=== PATIENT | male | born 1970 | race Two or more races ===

== ENCOUNTER 2020-08-07 10:25 | Outpatient (REF) | payer MEDICAID, SELFPAY ==
[2020-08-07 12:13] LABS: SARS COV2 PCR INHOUSE POSITIVE (Negative)
== END 2020-08-07 10:26 | disposition home or self-care (01) ==
LOC: HO.LAB 10:25
PROVIDERS: Visit Provider Internal Medicine
DX: Z20.822 Contact with and (suspected) exposure to COVID-19 (principal)
CPT/HCPCS: C9803; U0003

== ENCOUNTER 2020-10-31 10:19 | Outpatient (REF) | payer MEDICAID, SELFPAY ==
--- NOTE | ~2020-10-31 | XR_ITS ---
EXAMINATION: XR CERVICAL SPINE CLINICAL INFORMATION: Spondylosis without myelopathy or radiculopathy COMPARISON: None TECHNIQUE: 6 views of the cervical spine, inclusive of flexion and extension views, were obtained. FINDINGS: There is normal cervical lordosis. There is loss of C4-C5 and C6-C7 disc height with mild ventral spondylosis. Rest of the disc heights, vertebral heights and alignment is normal. There is moderate bilateral C4-C5 neural foraminal narrowing from uncovertebral hypertrophic changes. XR/XR cervical spine min 6V IMPRESSION: Degenerative disc changes C4-C5 and C6-C7 disc levels with mild ventral spondylosis. No visible acute fracture or dislocation.
== END 2020-10-31 10:20 | disposition home or self-care (01) ==
LOC: HO.XRAY 10:19
PROVIDERS: Visit Provider Physical Medicine & Rehabilitation
DX: M47.812 Spondylosis without myelopathy or radiculopathy, cervical region (principal)
CPT/HCPCS: 72052

== ENCOUNTER 2021-07-01 11:07 | Outpatient (REF) | payer OTHER, SELFPAY ==
[2021-07-01 11:29] LABS: COVID-19 Test Positive (Negative); IDNOW Serial# 08D9AD1C
== END 2021-07-01 11:08 | disposition home or self-care (01) ==
LOC: HO.LAB 11:07
PROVIDERS: PCP Internal Medicine; Visit Provider Internal Medicine
DX: Z20.822 Contact with and (suspected) exposure to COVID-19 (principal)
CPT/HCPCS: 87635; C9803

== ENCOUNTER 2021-07-07 13:49 | Outpatient (REF) | payer OTHER, SELFPAY ==
[2021-07-07 16:15] LABS: COVID-19 Test Negative (Negative); IDNOW Serial# 16C4AD1C
== END 2021-07-07 13:50 | disposition home or self-care (01) ==
LOC: HO.LAB 13:49
PROVIDERS: Visit Provider Internal Medicine
DX: Z20.822 Contact with and (suspected) exposure to COVID-19 (principal)
CPT/HCPCS: 87635; C9803

== ENCOUNTER 2021-07-14 14:57 | Outpatient (REF) | payer OTHER, SELFPAY ==
[2021-07-14 15:27] LABS: COVID-19 Test Negative (Negative); IDNOW Serial# 16C4AD1C
== END 2021-07-14 14:58 | disposition home or self-care (01) ==
LOC: HO.LAB 14:57
PROVIDERS: Visit Provider Internal Medicine
DX: Z20.822 Contact with and (suspected) exposure to COVID-19 (principal)
CPT/HCPCS: 87635; C9803

== ENCOUNTER 2022-02-25 09:59 | Outpatient (REF) | payer OTHER, SELFPAY ==
--- NOTE | ~2022-02-25 | XR_ITS ---
EXAMINATION: BILATERAL KNEE X-RAY CLINICAL INFORMATION: Pain COMPARISON: Previous left knee x-ray January 2011 TECHNIQUE: 3 views of each knee FINDINGS: Right: Bone alignment is normal. No fracture or dislocation is seen. Joint spaces are normal. There is no joint effusion. Left: Bone alignment is normal. No fracture or dislocation. There is mild arthritis at the medial femoral tibial and patellofemoral joints. There is no joint effusion. XR/XR knee LT 3V IMPRESSION: Right knee: Unremarkable exam. Left knee: Mild arthritis.
--- NOTE | ~2022-02-25 | XR_ITS ---
EXAMINATION: BILATERAL KNEE X-RAY CLINICAL INFORMATION: Pain COMPARISON: Previous left knee x-ray January 2011 TECHNIQUE: 3 views of each knee FINDINGS: Right: Bone alignment is normal. No fracture or dislocation is seen. Joint spaces are normal. There is no joint effusion. Left: Bone alignment is normal. No fracture or dislocation. There is mild arthritis at the medial femoral tibial and patellofemoral joints. There is no joint effusion. XR/XR knee RT 3V IMPRESSION: Right knee: Unremarkable exam. Left knee: Mild arthritis.
[2022-02-25 10:25] LABS: MANUAL DIFF FLAG NO
[2022-02-25 11:58] LABS: Basophils Absolute Auto 0.1 X10*3/uL (0.0-0.2); Basophils Percent Auto 0.8 % (0-2); Eosinophils Absolute Auto 0.2 X10*3/uL (0.0-0.4); Eosinophils Percent Auto 2.9 % (0-4); Hematocrit 42.9 % (42.0-52.0); Hemoglobin 14.6 g/dl (14.0-18.0); Imm Gran Abs Auto 0.04 X10*3/uL (0.00-0.03); Imm Gran Pct Auto 0.6 % (0.0-0.4); Lymphocytes Absolute Auto 2.5 X10*3/uL (1.2-4.9); Lymphocytes Percent Auto 38.3 % (20-40); Mean Corpuscular Hemoglobin 29.7 pg (27.0-33.0); Mean Corpuscular Volume 87.4 fL (80.0-98.0); Mean Platelet Volume 9.4 fL (9.4-12.4); Monocytes Absolute Auto 0.7 X10*3/uL (0.1-1.2); Monocytes Percent Auto 11.5 % (2-11); Neutrophils Percent Auto 45.9 % (45-73); Platelet Count 239 X10*3/uL (160-400); Red Blood Count 4.91 X10*6/uL (4.60-5.80); Red Cell Distribution Width 13.2 % (11.0-16.0); White Blood Count 6.5 X10*3/uL (4.8-10.8)
[2022-02-25 12:31] LABS: Alanine Aminotransferase 33 U/L (0-40); Albumin Level 4.8 g/dL (3.5-5.0); Alkaline Phosphatase 45 U/L (39-117); Anion Gap 15 (12-20); Aspartate Amino Transferase 30 U/L (5-37); Bilirubin Total 0.6 mg/dL (0.0-1.0); Blood Urea Nitrogen 14 mg/dL (9-16); Calcium 10.3 mg/dL (8.4-10.2); Carbon Dioxide 27 mmol/L (22-29); Chloride 102 mmol/L (96-108); Cholesterol 166 mg/dL; Estimated Glomerular Filt Rate > 60; Glucose Fasting 115 mg/dL (60-99); HDL Cholesterol 50 mg/dL; Iron 82 mcg/dL (45-160); LDL Cholesterol Calculated 103 mg/dl; Percent Iron Saturation 25 % (15-50); Potassium 4.7 mmol/L (3.3-5.1); Sodium 139 mmol/L (135-145); Total Iron Binding Capacity 327 mcg/dL (228-428); Total Protein 7.8 g/dL (6.5-8.0); Triglycerides 65 mg/dL; Unsaturated Iron Binding 245 ug/dL
== END 2022-02-25 10:00 | disposition home or self-care (01) ==
LOC: HO.XRAY 09:59
PROVIDERS: PCP Internal Medicine; Visit Provider Internal Medicine
DX: I10 Essential (primary) hypertension (principal); D64.9 Anemia, unspecified; K92.1 Melena
CPT/HCPCS: 36415; 73562; 80053; 80061; 83540; 85025

== ENCOUNTER 2022-03-30 | Outpatient (REF) | payer OTHER, SELFPAY ==
--- NOTE | ~2022-03-30 | XR_ITS ---
EXAMINATION: XR KNEE AP STANDING CLINICAL INFORMATION: Knee pain. COMPARISON: None TECHNIQUE: AP bilateral standing view of the knees was obtained. FINDINGS: There is mild reduction in the medial compartment joint space both knees. The lateral compartment joint space is preserved. No loose bodies, fracture or dislocation seen. The soft tissues are normal. XR/XR knee standing BI IMPRESSION: Mild degenerative changes of medial compartment both knees. No fracture or loose body seen.
== END 2022-03-30 00:01 ==
LOC: HO.HOSX
PROVIDERS: Visit Provider Physician Assistant
DX: M25.561 Pain in right knee (principal); M25.562 Pain in left knee; M54.16 Radiculopathy, lumbar region
CPT/HCPCS: 73565; 99202

== ENCOUNTER → 2022-06-17 14:46 | Outpatient (BNVA) | payer OTHER, SELFPAY | PROVIDERS: PCP Internal Medicine; Visit Provider Nurse Practitioner | DX: Z01.818 Encounter for other preprocedural examination (principal); K59.01 Slow transit constipation; K21.9 Gastro-esophageal reflux disease without esophagitis | CPT/HCPCS: 99202 ==

== ENCOUNTER → 2022-10-11 14:27 | Outpatient (BNVA) | payer OTHER, SELFPAY | PROVIDERS: PCP Internal Medicine; Visit Provider Orthopaedic Surgery | DX: M23.92 Unspecified internal derangement of left knee (principal) | CPT/HCPCS: 99212 ==

== ENCOUNTER 2023-02-04 10:34 | Outpatient (REF) | payer OTHER, SELFPAY ==
--- NOTE | ~2023-02-04 | MR_ITS ---
EXAMINATION: MR KNEE WITHOUT CONTRAST, LEFT CLINICAL INFORMATION: Left knee pain, internal derangement. COMPARISON: Radiograph dated 02/25/2022. TECHNIQUE: MRI of the knee without contrast was performed using routine sequences on a high-field scanner. FINDINGS: MENISCI: MEDIAL MENISCUS: Complex tear of the meniscal body with a dominant radial component. A horizontal component extends into the posterior horn along the inner margin. Meniscal body is partially extruded. LATERAL MENISCUS: Intact. LIGAMENTS: CRUCIATE: Anterior cruciate ligament is intact. The posterior cruciate ligament is diminutive with a hypertrophied posterior meniscofemoral ligament, possibly the result of an old sprain or partial tear. COLLATERAL: Edema signal around the medial collateral ligament is likely reactive to the underlying meniscal abnormality. Collateral ligaments are intact. EXTENSOR MECHANISM: Intact ARTICULAR CARTILAGE/BONE: PATELLOFEMORAL COMPARTMENT: Small marginal osteophytes. Minimal chondral fissuring in the trochlea. MEDIAL COMPARTMENT: Moderate nonuniform chondral thinning is present in the medial tibial plateau anteriorly with a region of full thickness cartilage loss, cortical irregularity, subchondral edema, and subchondral cystic change. Articular cartilage loss of the medial femoral condyle is more pronounced at the posterior weightbearing surface. Small marginal osteophytes. No fractures. LATERAL COMPARTMENT: Tiny marginal osteophytes. Articular cartilage appears relatively well preserved. JOINT FLUID AND BURSAE: Moderate-sized joint effusion. Trace Painter's cyst. Mild pes anserine bursitis. Fluid is present in the popliteus tendon sheath. MR/MR knee LT wo con IMPRESSION: 1. Complex tear of the medial meniscus with a dominant radial component at the meniscal body and partial extrusion of the meniscal body. 2. Moderate medial compartment osteoarthritis. 3. Small caliber PCL, potentially the result of an old partial tear. 4. Moderate-sized joint effusion and trace Painter's cyst. 5. Mild pes anserine bursitis.
== END 2023-02-04 10:35 | disposition home or self-care (01) ==
LOC: HO.MRI 10:34
PROVIDERS: PCP Internal Medicine; Visit Provider Orthopaedic Surgery
DX: M23.92 Unspecified internal derangement of left knee (principal)
CPT/HCPCS: 73721

== ENCOUNTER 2023-02-10 12:28 | Outpatient (AMB) | payer OTHER, SELFPAY ==
--- NOTE | 2023-02-10 12:36 | MHC.OFFVIS ---
Intake Intake Visit Reasons: OV - Left Knee MRI Review Intake Note: Magnus is a 52 year old male who presents today for an MRI review of the left knee. Last injection was done in 2021. Allergies No Known Allergies Allergy (Mild, Verified 02/10/23 12:43) N/A Medication List - Last Reconciled 02/10/23 by Amanda Pink RN alprazolam mg PO fluoxetine 40 mg PO QAM 90 days gabapentin 600 mg PO TID ibuprofen 600 mg PO DAILY losartan 25 mg PO DAILY 90 days pantoprazole 40 mg PO DAILY 90 days peg 3350-electrolytes 236-22.74-6.74 -5.86 gram (Golytely) 240 mL PO Q10M 1 day quetiapine 300 mg PO BEDTIME sennosides (senna) 8.6 mg PO BEDTIME PRN 90 days tadalafil 20 mg PO DAILY HPI OV - Left Knee MRI Review HPI Details Magnus is a 52 year old Diabetic man who presents for an MRI review of his left knee pain. [place] patient He continues to complain of pain with daily activity which is affecting his ability to sleep at night. He says he is seen in the ED one a month due to his pain. He describes his pain as sharp and in the medial aspect of his knees. He takes Gabapentin and Ibuprofen with some relief. He says he received a steroid injection in 04/2022, without relief, and his pain has not improved with activity modification. He feels a painful catching, clicking, and popping sensation in his knees when extending out of flexion, and as a result he has been walking with a stiff-legged gait. He has a hx of multiple surgeries in the past and is not interested in surgery for his knee at this time. [facility] Medical History Bloody stools Constipation by delayed colonic transit Essential hypertension GERD (gastroesophageal reflux disease) Insomnia Lumbar degenerative disc disease Mild recurrent major depression Obesity (BMI 30-39.9) Surgical History History of hernia surgery History of lumbar fusion Family History Mother Heart attack Father No problems noted. Social History (Reviewed 10/11/22 @ 15:02 by AROLDO Wang Housing: Apartment Alcohol intake: former Patient Tobacco Use Status: Never used Tobacco e-Cigarette/Vaping Use: Never Used Second Hand Smoke Exposure: No service: No Current occupational status: disabled Cognitive needs: Yes (cane) Hearing needs: No Vision needs: Yes (glasses) Review of Systems Const All systems reviewed & are unremarkable except as noted in HPI and below Physical Exam Const General: no acute distress, alert and awake Orientation/consciousness: patient oriented x3 HEENT Head: Yes normocephalic and Yes atraumatic Eyes EOM: EOMs intact bilaterally Resp Effort & Inspection: normal respiratory effort and able to speak in complete sentences Cardio Jugular venous distension: no JVD Skin General skin exam: turgor normal Rashes: no rashes Neuro General: patient oriented x3 Extrem Other: Left Knee: + Sharp medial Adriane's 1+ varus instability Psych Appearance: grossly normal Affect: normal affect Attitude: cooperative Office Procedures Joint Injection/Drain Joint Injection/Drain Details: Injected 1 mL of Decadron and 3 mL 1% lidocaine and 3 mL of 0.25% Marcaine. Site was prepped using aseptic technique. Patient tolerated the procedure well. Primary Site: left knee Approach Used: anterolateral Coding 59866 - Large joint Procedure code (CPT) selection complete Results Reviewed Results Reviewed: 02/10/23 13:06 BUPivacaine MPF 0.25 % [Sensorcaine-MPF 0.25% 10 ML] 10 ml .ROUTE .STK-MED ONE Lidocaine HCl 2 % MPF [Xylocaine 2 % MPF] 5 ml .ROUTE .STK-MED ONE dexAMETHasone sod phosphate [Decadron] 4 mg .ROUTE .STK-MED ONE I personally reviewed relevant radiographs & MR images. Mild degenerative changes of medial compartment both knees.? 1. Complex tear of the medial meniscus with a dominant radial component at the meniscal body and partial extrusion of the meniscal body. 2. Moderate medial compartment osteoarthritis. 3. Small caliber PCL, potentially the result of an old partial tear. 4. Moderate-sized joint effusion and trace Painter's cyst. 5. Mild pes anserine bursitis. Assessment & Plan Assessment & Plan (1) Complex tear of medial meniscus of left knee: Code(s): S83.232A - Complex tear of medial meniscus, current injury, left knee, initial encounter Plan: This is a 52 year old man with a left MMT in the setting of OA. He has pain with daily activity, and feels limited in his ADLs. He found no relief from a previous steroid injection at an outside clinic, and limited relief from NSAIDs & Gabapentin. I discussed his diagnosis and treatment options, he is not interested in surgery at this time. I think the most effective treatment would be a UKA but he is not ready for that. I injected his left knee today, which he tolerated well, and ordered an unloading brace for him to wear with activity. I recommend he remain active as tolerated. He can follow up prn. (2) Right knee pain: Code(s): M25.561 - Pain in right knee Plan: Injected, continue activity as tolerated (3) History of diabetes mellitus: Code(s): Z86.39 - Personal history of other endocrine, nutritional and metabolic disease Plan: Controlled by diet & exercise, no medications. I discussed the hyperglycemic effects of steroid injections. Plan Scribed for Misael Long MD by Pravin Hollis, ophthalmic medical assistant, on 02/10/23 at 12:50 PM, EST. Coding Level of Care Code Est Pt Level 4 (99087) Diagnoses Complex tear of medial meniscus of left knee S83.232A Right knee pain M25.561 History of diabetes mellitus Z86.39 CPT Codes Coding - 70137 Large joint: 03482 - Large joint ([id number])
== END 2023-02-10 14:10 | disposition home or self-care (01) ==
PROVIDERS: PCP Internal Medicine; Visit Provider Orthopaedic Surgery
DX: S83.232A Complex tear of medial meniscus, current injury, left knee, initial encounter (principal); M25.561 Pain in right knee; Z86.39 Personal history of other endocrine, nutritional and metabolic disease
CPT/HCPCS: 20610; 99214

== ENCOUNTER → 2023-02-10 12:28 | Outpatient (BNVA) | payer OTHER, SELFPAY | PROVIDERS: PCP Internal Medicine; Visit Provider Orthopaedic Surgery | DX: S83.232D Complex tear of medial meniscus, current injury, left knee, subsequent encounter (principal); M25.561 Pain in right knee; Z86.39 Personal history of other endocrine, nutritional and metabolic disease | CPT/HCPCS: 20610; 99212; J1100 ==

== ENCOUNTER 2023-04-13 11:56 | Outpatient (AMB) | payer OTHER, SELFPAY ==
[2023-04-13 12:02] VITALS: BP 132/90; BMI 29.8
--- NOTE | 2023-04-13 12:02 | A.OFFPC_ITS ---
Vital Signs 04/13/23 12:02 Height 6 ft 1 in Weight 226 lb BMI 29.8 BP 132/90 H Blood Pressure Location Lt brachial Position Sitting Intake Visit Reasons: PE Intake Note: Patient here for a physical exam Continuous Vulcanizing Machine Operator Required: No Accompanied by: Self / Same As Patient Allergies No Known Allergies Allergy (Mild, Verified 04/13/23 12:16) N/A Medication List - Last Reconciled 04/13/23 by Marian Beal MD losartan 25 mg PO DAILY 90 days Tobacco use date assessed: 04/13/23 Dental Screening Dental Screen Date: 04/13/23 Did you have a dental visit in the last 12 months?: Yes Did you have a dental problem in the last 6 months where you did not have access to dental care?: No Was dental information given to patient?: Patient has dentist HPI HPI Comments History of Present Illness Details This is a 53-year-old male with mild recurrent major depression that comes for his physical exam. Depression stable with counseling. Denies any chest pain or shortness of breath. Was referred to open access last year and will be referred again because he said he was giving the medications but had no appointment for colonoscopy. [facility] Medical History Mild recurrent major depression Bloody stools Constipation by delayed colonic transit GERD (gastroesophageal reflux disease) Insomnia Lumbar degenerative disc disease Obesity (BMI 30-39.9) Essential hypertension Surgical History History of hernia surgery History of lumbar fusion Family History Mother Heart attack Father No problems noted. Social History Housing: Apartment Alcohol intake: former Patient Tobacco Use Status: Never used Tobacco e-Cigarette/Vaping Use: Never Used Second Hand Smoke Exposure: No service: No Current occupational status: disabled Cognitive needs: Yes (cane) Hearing needs: No Vision needs: Yes (glasses) Questionnaire PHQ-9 Over the last 2 weeks, how often have you been bothered by any of the following problems? 1. Little interest or pleasure in doing things: more than half the days 2. Feeling down, depressed, or hopeless: several days 3. Trouble falling or staying asleep, or sleeping too much: several days 4. Feeling tired or having little energy: several days 5. Poor appetite or overeating: not at all 6. Feeling bad about yourself - or that you are a failure or have let yourself or your family down: not at all 7. Trouble concentrating on things, such as reading the newspaper or watching television: several days 8. Moving or speaking so slowly that other people could have noticed. Or the opposite - being so fidgety or restless that you have been moving around a lot more than usual: not at all 9. Thoughts that you would be better off or of hurting yourself in some way: not at all Total score: 6 Depression Screening Interpretation: Positive Depression Screening Follow-up: Existing condition and Community Mental Health Worker F/U Depression Screening Done: Yes 01215 - PHQ-9 Billing: Yes Source: Developed by Drs. Teo Roy, Shireen Smith, Phu Zhao and colleagues, with an educational eleazar from [employer]. Thrive Questionnaire Date Thrive assessed: 04/13/23 I am a: Patient What is your living situation today?: I have a steady place to live Within the past 12 months, did the food you bought not last and you didn't have the money to get more?: Never true Within the past 12 months, did you worry whether your food would run out before you got money to buy more?: Never true Do you have trouble paying for medicines?: No Do you have trouble getting transportation to medical appointments?: No Do you have trouble paying your heating and electricity bill?: No Do you have trouble taking care of your child, family member or friend?: No Do you have trouble with day-to-day activities such as bathing, preparing meals, shopping, managing finances, etc.?: No Are you currently unemployed and looking for a job?: No Are you interested in more education?: No Please select the resources that you would like help with: None Currently or been in a relationship where the following occur: no concerns reported AUDIT C Alcohol Use Questionnaire (AUDIT-C) 1. How often do you have a drink containing alcohol?: Never Total Score: 0 GREGOIRO-7 AMB Questionnaire GREGORIO-7 Date GREGORIO - 7 assessed: 04/13/23 Feeling nervous, anxious, or on edge: 3 = Nearly every day Not being able to stop or control worryin = Several days Worrying too much about different things: 3 = Nearly every day Trouble relaxin = Several days Being so restless that it is hard to sit still: 1 = Several days Becoming easily annoyed or irritable: 2 = More than half the days Feeling afraid as if something awful might happen: 1 = Several days Total GREGORIO-7 score (0-4 normal; 5-9 mild; 10-14 moderate; 15-21 severe): 12 Source: Developed by Drs. Teo Roy, Shireen Smith, Phu Zhao and colleagues, with an educational eleazar from [employer]. GREGORIO-7 Assessment Billing GREGORIO-7 Assessment Tool: GREGORIO-7 Assessment 59093 Review of Systems Const All systems reviewed & are unremarkable except as noted in HPI and below Eyes Reports no additional complaints, Denies change in vision and Denies other visual disturbances Card Denies chest pain at rest, Denies chest pain with activity, Denies edema, Denies irregular heart rhythm, Denies claudication, Denies dyspnea, Denies dyspnea on exertion, Denies orthopnea, Denies paroxysmal nocturnal dyspnea and Denies slow heart rate Resp Denies cough, Denies dyspnea and Denies dyspnea on exertion GI Denies abdominal pain, Denies change in bowel habits, Denies excessive flatus, Denies nausea and Denies vomiting Denies urinary hesitancy, Denies urinary incontinence and Denies urinary urgency Musc Denies abnormal gait, Denies atrophy, Denies deformity and Denies limited range of motion Skin/Breast Denies bleeding lesions, Denies changing lesions and Denies rash Neuro Denies abnormal gait, Denies behavioral changes, Denies confusion and Denies lack of coordination Psych Denies behavioral changes and Denies confusion Physical exam (Primary Care) Vital Signs: Last Vital Signs BP 132/90 H 04/13/23 12:02 BMI result Body Mass Index 29.8 Tobacco/Smoking Status: Tobacco use Status Tobacco use date assessed 04/13/23 04/13/23 12:10 Patient Tobacco Use Status Never used Tobacco 04/13/23 12:10 e-Cigarette/Vaping Use Never Used 12/06/23 12:10 PHQ-9: PHQ-9 Score PHQ-9: Total score 6 04/13/23 12:10 Depression Screening Interpretation: Positive Depression Screening Follow-up: Existing condition and Community Mental Health Worker F/U Thrive Assessment: Date of Thrive Assessment Date Thrive assessed 04/13/23 04/13/23 12:10 Currently or been in a relationship where the following occur: no concerns reported Const General: No confusion Orientation/consciousness: patient oriented x3 and No confusion HENMT Head: Yes normal to inspection, Yes normocephalic and Yes atraumatic Ears: external ears normal Eyes General: appearance normal, both eyes and all related structures Eyelids: Yes eyelids normal Conjunctivae: conjunctivae normal Neck Neck: Yes normal visual inspection and Yes supple Resp Effort & Inspection: normal respiratory effort Auscultation: clear to auscultation bilaterally Cardio Jugular venous distension: no JVD Rate: regular rate Rhythm: regular rhythm Heart sounds: S1 normal heart sound present and S2 normal heart sound present GI Inspection: Yes normal to inspection Palpation (GI): Soft to palpation and nontender Auscultation: normal bowel sounds Skin General skin exam: no rashes or lesions noted Neuro General: patient oriented x3, no focal motor deficits and No confusion Extrem General: Yes full ROM Psych Appearance: grossly normal Office Procedures Flu Questionnaire Does the patient have a severe egg allergy?: No Immunizations flu vacc [id number] 6mos up(PF) 60 mcg(15 mcgx4)/0.5 mL IM syringe Performing Provider: Marian Beal MD [facility] Documented (not given) by: DAYLIN Terry on 04/13/23 12:12 Reason Not Given: Patient Refused Assessment and Plan Assessment & Plan (1) Adult general medical exam: Code(s): Z00.00 - Encounter for general adult medical examination without abnormal findings Plan: Repeat in a year. (2) Mild recurrent major depression: Code(s): F33.0 - Major depressive disorder, recurrent, mild Plan: Continue counseling. Orders: Orders Lipid Panel Today Z00.00 - Encounter for general adult medical examination without abnormal findings Comprehensive [place]. Panel Fast Today Z00.00 - Encounter for general adult medical examination without abnormal findings Influenza [id number] Immunization Today Z23 - Encounter for immunization Referrals Open Access Screening Colonoscopy Referral Z12.11 - Encounter for screening for malignant neoplasm of colon Coding Level of Care Code Est Pt Prev Care 40-64y(36441) Diagnoses Adult general medical exam Z00.00 Mild recurrent major depression F33.0 Additional Codes GREGORIO-7 Assessment Billing - GREGORIO-7 Assessment Tool: GREGORIO-7 Assessment 63756 ([id number]) Time Spent (min) 31
== END 2023-04-13 12:26 | disposition home or self-care (01) ==
PROVIDERS: PCP Internal Medicine; Visit Provider Internal Medicine
DX: Z00.00 Encounter for general adult medical examination without abnormal findings (principal); F33.0 Major depressive disorder, recurrent, mild; K21.9 Gastro-esophageal reflux disease without esophagitis; I10 Essential (primary) hypertension
CPT/HCPCS: 96127; 99396

== ENCOUNTER 2023-04-21 12:37 | Outpatient (REF) | payer OTHER, SELFPAY ==
[2023-04-21 14:29] LABS: Alanine Aminotransferase 17 U/L (0-40); Albumin Level 4.4 g/dL (3.5-5.0); Alkaline Phosphatase 51 U/L (39-117); Anion Gap 11 (12-20); Aspartate Amino Transferase 19 U/L (5-37); Bilirubin Total 0.4 mg/dL (0.0-1.0); Blood Urea Nitrogen 21 mg/dL (9-16); Calcium 9.6 mg/dL (8.4-10.2); Carbon Dioxide 27 mmol/L (22-29); Chloride 106 mmol/L (96-108); Cholesterol 227 mg/dL (<200); Estimated Glomerular Filt Rate > 60; Glucose Fasting 96 mg/dL (60-99); HDL Cholesterol 50 mg/dL (>40); LDL Cholesterol Calculated 165 mg/dL (<100); Potassium 4.3 mmol/L (3.3-5.1); Sodium 140 mmol/L (135-145); Total Protein 7.8 g/dL (6.5-8.0); Triglycerides 61 mg/dL (<150)
== END 2023-04-21 12:38 | disposition home or self-care (01) ==
LOC: HO.LAB 12:37
PROVIDERS: PCP Internal Medicine; Visit Provider Internal Medicine
DX: Z00.00 Encounter for general adult medical examination without abnormal findings (principal)
CPT/HCPCS: 36415; 80053; 80061

== ENCOUNTER 2023-05-19 14:16 | Outpatient (AMB) | payer OTHER, SELFPAY ==
--- NOTE | 2023-05-19 14:49 | A.OFFVIS_ITS ---
Intake Intake Visit Reasons: ov- right knee pain Intake Note: Magnus is a 53 year old male who presents today for a follow up of his right knee pain as he would like an unloading brace as the one he has for his left kne is helpful. Complains of right hip pain and would like an xray Allergies No Known Allergies Allergy (Mild, Verified 04/13/23 12:16) N/A HPI ov- right knee pain HPI Details Magnus is a 53 year old Diabetic man who returns to discuss his right knee pain. He complains of pain with daily activity, and would like to try wearing a brace. He says the left knee brace he was given has been very helpful for his pain and he thinks he would benefit from the same brace on his right knee. He is com plaining of right hip pain at the level of his [facility] Medical History Mild recurrent major depression Bloody stools Constipation by delayed colonic transit GERD (gastroesophageal reflux disease) Insomnia Lumbar degenerative disc disease Obesity (BMI 30-39.9) Essential hypertension Surgical History History of hernia surgery History of lumbar fusion Family History Mother Heart attack Father No problems noted. Social History Housing: Apartment Alcohol intake: former Patient Tobacco Use Status: Never used Tobacco e-Cigarette/Vaping Use: Never Used Second Hand Smoke Exposure: No service: No Current occupational status: disabled Cognitive needs: Yes (cane) Hearing needs: No Vision needs: Yes (glasses) Review of Systems Const All systems reviewed & are unremarkable except as noted in HPI and below Physical Exam Const General: no acute distress, alert and awake Orientation/consciousness: patient oriented x3 HEENT Head: Yes normocephalic and Yes atraumatic Eyes EOM: EOMs intact bilaterally Resp Effort & Inspection: normal respiratory effort and able to speak in complete sentences Cardio Jugular venous distension: no JVD Skin General skin exam: turgor normal Rashes: no rashes Neuro General: patient oriented x3 Extrem Other: ttp medial compartment bilateral knees He has an antalgic gait with minimal knee flexion an the swing phase in gait and pain with resisted hip flexion neg impingement right hip 1+ varus laxity right knee Psych Appearance: grossly normal Affect: normal affect Attitude: cooperative Assessment & Plan Assessment & Plan (1) Complex tear of medial meniscus of left knee: Code(s): S83.232A - Complex tear of medial meniscus, current injury, left knee, initial encounter Plan: IS doing well with his left knee unbloader. (2) Varus deformity, not elsewhere classified, right knee: Code(s): M21.161 - Varus deformity, not elsewhere classified, right knee Plan: It is reasonable to try a medial unloading on the right. Plan Scribed for Misael Long MD by Pravin Hollis, mobile paramedical examiner, on 05/19/23 at 2:55 PM, EST. Coding Level of Care Code Est Pt Level 3 (56345) Diagnoses Complex tear of medial meniscus of left knee S83.232A Varus deformity, not elsewhere classified, right knee M21.161
== END 2023-05-19 15:56 | disposition home or self-care (01) ==
PROVIDERS: PCP Internal Medicine; Visit Provider Orthopaedic Surgery
DX: S83.232A Complex tear of medial meniscus, current injury, left knee, initial encounter (principal); M21.161 Varus deformity, not elsewhere classified, right knee
CPT/HCPCS: 99213

== ENCOUNTER → 2023-05-19 14:16 | Outpatient (BNVA) | payer OTHER, SELFPAY | PROVIDERS: PCP Internal Medicine; Visit Provider Orthopaedic Surgery | DX: S83.232D Complex tear of medial meniscus, current injury, left knee, subsequent encounter (principal); M21.161 Varus deformity, not elsewhere classified, right knee | CPT/HCPCS: 99212; J0665; J1100 ==

== ENCOUNTER 2023-08-02 09:07 | Day surgery (SDC) | payer OTHER, SELFPAY ==
[2023-07-29 14:26] VITALS: BMI 32.2
--- NOTE | 2023-08-01 12:27 | HO.ANESPROP2 ---
Documented by User: Lisa Chu NP 08/01/23 12:28 HPI - Anesthesia Eval Consult details Narrative: 53yo M for Colonoscopy PMFSH Active Problems Active Problems: All Active Problems (Updated 05/22/23 @ 10:02 by Misael Long MD) Varus deformity, not elsewhere classified, right knee (Acute) Complex tear of medial meniscus of left knee (Acute) Internal derangement of left knee (Acute) Pre-op examination (Acute) Lumbar radiculopathy (Acute) Right knee pain (Acute) Left knee pain (Acute) History of diabetes mellitus (Acute) Adult general medical exam (Acute) Screening for colon cancer (Acute) Routine screening for STI (sexually transmitted infection) (Acute) Screening for prostate cancer (Acute) Mild recurrent major depression (Acute) Bloody stools (Acute) Constipation by delayed colonic transit (Acute) GERD (gastroesophageal reflux disease) (Acute) Insomnia (Acute) Lumbar degenerative disc disease (Acute) Obesity (BMI 30-39.9) (Acute) Essential hypertension (Acute) Past Medical History Medical History Mild recurrent major depression Bloody stools Constipation by delayed colonic transit GERD (gastroesophageal reflux disease) Insomnia Lumbar degenerative disc disease Obesity (BMI 30-39.9) Essential hypertension Family History Family History Mother Heart attack Father No problems noted. Surgical History Surgical History History of hernia surgery History of lumbar fusion Social History Social History Housing: Apartment Alcohol intake: former Patient Tobacco Use Status: Never used Tobacco e-Cigarette/Vaping Use: Never Used Second Hand Smoke Exposure: No Use of substances other than those prescribed or required for medical reasons: No Are you DNR?: No Advance Directives: No Advance Directives Information Provided: Yes service: No Current occupational status: disabled Cognitive needs: Yes (cane) Hearing needs: No Vision needs: Yes (glasses) Meds Allergies Allergy/AdvReac Type Severity Reaction Status Date / Time No Known Allergies Allergy Mild N/A Verified 08/02/23 10:41 Home Medications Medication Instructions Recorded Confirmed Last Taken Type aspirin 81 mg capsule 81 mg 03/26/24 Unknown History Exam Height,Weight and Vital Signs: Height 6 ft 1 in Weight 110.677 kg Assessment and Plan Assessment Anesthesia Assessment: Chart Reviewed Documented by User: Sukh Lopez MD 08/02/23 11:20 [facility] Past Medical History Medical History Mild recurrent major depression Bloody stools Constipation by delayed colonic transit GERD (gastroesophageal reflux disease) Insomnia Lumbar degenerative disc disease Obesity (BMI 30-39.9) Essential hypertension Family History Family History Mother Heart attack Father No problems noted. Family history of problems with anesthesia: No Surgical History Surgical History History of hernia surgery History of lumbar fusion History of Problems with Anesthesia: No Social History Social History Housing: Apartment Alcohol intake: former Patient Tobacco Use Status: Never used Tobacco e-Cigarette/Vaping Use: Never Used Second Hand Smoke Exposure: No Use of substances other than those prescribed or required for medical reasons: No Are you DNR?: No Advance Directives: No Advance Directives Information Provided: Yes service: No Current occupational status: disabled Cognitive needs: Yes (cane) Hearing needs: No Vision needs: Yes (glasses) Meds Allergies Allergy/AdvReac Type Severity Reaction Status Date / Time No Known Allergies Allergy Mild N/A Verified 08/02/23 10:41 Home Medications Medication Instructions Recorded Confirmed Last Taken Type aspirin 81 mg capsule 81 mg 08/02/23 Unknown History Exam Airway Mallampati Class: I TM Dist: >3cm Neck ROM: Full Loose/Missing/Broken Teeth: No Heart: ok Lungs: ok Assessment and Plan Assessment Anesthesia Assessment: Anesthesia Plan Discussed Final Anesthetic Review Family History of Problems with Anesthesia: No History of Problems with Anesthesia: No NPO: Yes ASA Class: II Final Preanesthetic Review: No Changes in Pt Med Stat, Meds/Allgs Chart Reviewed, Consent Obtained/Reviewed and Anes Risks/Benef Reviewed Patient Risk: Intermediate Procedure Risk: Low Anesthetic Plan Anesthetic Plan: MAC: and Agree w/ Assess. and Plan Disposition: Standard PACU
--- NOTE | 2023-08-02 10:22 | P.HPSUR_ITS ---
Pre-Procedural Eval Section A - 24 Hr Update-Section A only Date of Service: 08/02/23 Section B - Complete if H&P > 30 days Chief Complaint: Encounter for screening for malignant neoplasm of Relevant Family History (Specify if Yes): No Relevant Social History: None Present Medications: see Short Stay Collaborative assessment Medical History: Significant History (Mild recurrent major depression Bloody s tools Constipation by delayed colonic transit GERD (gastroesophageal reflux disease) Insomnia Lumbar degenerative disc disease Obesity (BMI 30-39.9) Essential hypertension) History of Previous Operations: Relevant previous surgery/procedure and date(s) (History of hernia surgery History of lumbar fusion) Allergies: Allergies Allergy/AdvReac Type Severity Reaction Status Date / Time No Known Allergies Allergy Mild N/A Verified 04/13/23 12:16 Review of Systems Sugical H&P ROS: Negative: Constitution, Cardiovascular, Respiratory, Neurological, Psychiatric, Hem-Onc, Allergic/Immunologic, Gastrointestinal, Genitourinary, Musculoskeletal, Integumentary, Endocrine and Eyes/Ears/Nose/Throat Exam Surgical H&P Exam: Normal: HEENT, Normal: Heart, Normal: Lungs, Normal: Extremities, Normal: Abdomen, Normal: Skin and Normal: Neurological Plan Diagnosis/Plan: Unchanged I have reviewed the history and physical and performed a pertinent physical examination on my patient. No changes have occurred unless specified. Time Spent With Patient Time: Total time managing care of this patient today ____ minutes.
[2023-08-02 10:54] VITALS: BP 157/99; PULSE 80; RESP 18; TEMP 36.9; O2SAT 96
--- NOTE | 2023-08-02 11:14 | P.OP_ITS ---
Operative Note Operative Note Date of Service: 08/02/23 Narrative: Operative Information Procedure Description: Colonoscopy Indication: screening Anesthesia: MAC COLONOSCOPY Instrument: Olympus variable stiffness ADULT scope 190L Colonoscopy Monitoring: Vital signs and clinical assessment, continuous EKG monitoring, Pulse oximetry, Carbon Dioxide monitoring and blood pressure monitoring were done throughout the procedure. Colon withdrawal time was 12 minutes. Procedure: The patient was placed in the left lateral decubitis position and pre-procedure medications were administered. After a digital rectal examination of the ano-rectum, the video colonoscope was inserted into the rectum and advanced through the colon to the cecum/TI. The colonoscope was slowly withdrawn in a retrograde panoramic fashion and the colon mucosa was carefully examined including a retroflexed view of the rectum. Findings and interventions are described below. Procedure Difficulty: easy Findings: Terminal Ileum- patchye rythema, bx taken Cecum:normal, bx taken Ascending Colon: normal Transverse Colon -normal Descending Colon:normal Sigmoid Colon: normal Rectum: Retroflexion with small to medium sized internal hemorrhoids seen, grade I Anorectum - normal Intervention: biopsies, cold forceps Colon preparation: [place] Bowel Preparation Scale Right colon; 2 Transverse colon: 2 Left colon; 2 (0 = Unprepared colon segment with mucosa not seen due to solid stool that cannot be cleared. 1 = Portion of mucosa of the colon segment seen, but other areas of the colon segment not well seen due to staining, residual stool and/or opaque liquid. 2 = Minor amount of residual staining, small fragments of stool and/or opaque liquid, but mucosa of colon segment seen well. 3 = Entire mucosa of colon segment seen well with no residual staining, small fragments of stool or opaque liquid) Impression and Post Procedure Diagnosis: ileitis internal hemorrhoids Plan: High fiber diet leaflet Avoid straining at stool, epsom salts and sitz bath, anusol supps or cream Repeat Colonoscopy in 10 years or earlier if clinically indicated check nsaid hx --if sx pos then Cte to check for crohns Above findings were reviewed with the patient and relevant handouts were provided if indicated.
[2023-08-02 11:17] VITALS: BP 108/62; PULSE 80; RESP 16; TEMP 36.6; O2SAT 96
[2023-08-02 11:32] VITALS: BP 120/73; PULSE 78; RESP 16; TEMP 36.6; O2SAT 97
== END 2023-08-02 12:06 | disposition home or self-care (01) ==
PROVIDERS: PCP Internal Medicine; Visit Provider Internal Medicine Gastroenterology
PROC: 0DJD8ZZ Inspection of Lower Intestinal Tract, Via Natural or Artificial Opening Endoscopic (ICD-10-PCS; CPT 45378; principal; 2023-08-02 11:30)
DX: Z12.11 Encounter for screening for malignant neoplasm of colon (principal); K52.9 Noninfective gastroenteritis and colitis, unspecified; K64.0 First degree hemorrhoids; K59.01 Slow transit constipation; R19.5 Other fecal abnormalities; K21.9 Gastro-esophageal reflux disease without esophagitis; I10 Essential (primary) hypertension; F33.0 Major depressive disorder, recurrent, mild; E66.9 Obesity, unspecified; Z68.32 Body mass index [BMI] 32.0-32.9, adult; Z79.82 Long term (current) use of aspirin
CPT/HCPCS: 45380; 88305; J2704

== ENCOUNTER → 2023-08-02 09:07 | Outpatient (BNV) | payer OTHER, SELFPAY | PROVIDERS: PCP Internal Medicine; Visit Provider Internal Medicine Gastroenterology | DX: Z12.11 Encounter for screening for malignant neoplasm of colon (principal); K52.9 Noninfective gastroenteritis and colitis, unspecified; K64.0 First degree hemorrhoids | CPT/HCPCS: 45380 ==

== ENCOUNTER 2023-10-18 13:19 | Outpatient (AMB) | payer OTHER, SELFPAY ==
--- NOTE | 2023-10-18 13:24 | MHC.PC.OV ---
Vital Signs 10/18/23 13:25 10/18/23 16:16 Height 6 ft 1 in Weight 228 lb BMI 30.1 BP 140/92 H 140/90 H Blood Pressure Location Lt brachial Lt brachial Position Sitting Sitting Intake Visit Reasons: f/u Intake Note: Patient here for a follow up knee pain Design Checker Required: No Accompanied by: Self / Same As Patient Allergies No Known Allergies Allergy (Mild, Verified 10/18/23 13:36) N/A Medication List - Last Reconciled 10/18/23 by Marian Beal MD alprazolam 1 mg PO DAILY PRN aspirin 81 mg fluoxetine 20 mg PO DAILY gabapentin 600 mg PO TID losartan 25 mg PO DAILY 90 days meloxicam 15 mg PO DAILY PRN 90 days quetiapine 300 mg PO BEDTIME Tobacco use date assessed: 10/18/23 Dental Screening Dental Screen Date: 10/18/23 Did you have a dental visit in the last 12 months?: Yes Did you have a dental problem in the last 6 months where you did not have access to dental care?: No Was dental information given to patient?: Patient has dentist HPI HPI Comments History of Present Illness Details This is a 53-year-old male with hypertension, pure hypercholesterolemia, GERD GERD, mild recurrent major depression and left knee internal derangement that comes today for follow-up on his conditions. Blood pressure borderline normal to elevated and I will increase losartan from 25 mg to 50 mg. Blood pressure will be recheck in 3 weeks by nurse navigator. Lipid panel will be order and he stopped taking atorvastatin few months ago. GERD stable with PPIs. Depression well controlled with SSRIs and this is follow by Psychiatry. Has left knee pain secondary to internal derangement and sees ortho for this matter. Denies any chest pain or shortness on breath. ON LICENSE OF [facility] Medical History (Updated 10/18/23 @ 16:22 by Marian Beal MD) Mild recurrent major depression Bloody stools Constipation by delayed colonic transit GERD (gastroesophageal reflux disease) Insomnia Lumbar degenerative disc disease Obesity (BMI 30-39.9) Essential hypertension Surgical History History of hernia surgery History of lumbar fusion Family History Mother Heart attack Father No problems noted. Social History Housing: Apartment Alcohol intake: former Patient Tobacco Use Status: Never used Tobacco e-Cigarette/Vaping Use: Never Used Second Hand Smoke Exposure: No service: No Current occupational status: disabled Cognitive needs: Yes (cane) Hearing needs: No Vision needs: Yes (glasses) Questionnaire PHQ-9 Over the last 2 weeks, how often have you been bothered by any of the following problems? 1. Little interest or pleasure in doing things: more than half the days 2. Feeling down, depressed, or hopeless: several days 3. Trouble falling or staying asleep, or sleeping too much: several days 4. Feeling tired or having little energy: several days 5. Poor appetite or overeating: not at all 6. Feeling bad about yourself - or that you are a failure or have let yourself or your family down: not at all 7. Trouble concentrating on things, such as reading the newspaper or watching television: several days 8. Moving or speaking so slowly that other people could have noticed. Or the opposite - being so fidgety or restless that you have been moving around a lot more than usual: not at all 9. Thoughts that you would be better off or of hurting yourself in some way: not at all Total score: 6 Depression Screening Interpretation: Positive Depression Screening Follow-up: Existing condition, Community Mental Health Worker F/U and Follow-up Visit Requested Depression Screening Done: Yes 52832 - PHQ-9 Billing: Yes Source: Developed by Drs. Teo Roy, Shireen Smith, Phu Zhao and colleagues, with an educational eleazar from [employer]. Thrive Questionnaire Date Thrive assessed: 10/18/23 I am a: Patient What is your living situation today?: I have a steady place to live Within the past 12 months, did the food you bought not last and you didn't have the money to get more?: Never true Within the past 12 months, did you worry whether your food would run out before you got money to buy more?: Never true Do you have trouble paying for medicines?: No Do you have trouble getting transportation to medical appointments?: No Do you have trouble paying your heating and electricity bill?: No Do you have trouble taking care of your child, family member or friend?: No Do you have trouble with day-to-day activities such as bathing, preparing meals, shopping, managing finances, etc.?: No Are you currently unemployed and looking for a job?: No Are you interested in more education?: No Please select the resources that you would like help with: None Currently or been in a relationship where the following occur: no concerns reported THRIVE Score: 0 AUDIT C Alcohol Use Questionnaire (AUDIT-C) 1. How often do you have a drink containing alcohol?: Never Total Score: 0 Score Reviewed/Action Taken: No GREGORIO-7 AMB Questionnaire GREGORIO-7 Date GREGORIO - 7 assessed: 10/18/23 Feeling nervous, anxious, or on edge: 3 = Nearly every day Not being able to stop or control worryin = Several days Worrying too much about different things: 3 = Nearly every day Trouble relaxin = Several days Being so restless that it is hard to sit still: 1 = Several days Becoming easily annoyed or irritable: 2 = More than half the days Feeling afraid as if something awful might happen: 1 = Several days Total GREGORIO-7 score (0-4 normal; 5-9 mild; 10-14 moderate; 15-21 severe): 12 Source: Developed by Drs. Teo Roy, Shireen Smith, Phu Zhao and colleagues, with an educational eleazar from [employer]. GREGORIO-7 Assessment Billing GREGORIO-7 Assessment Tool: GREGORIO-7 Assessment 80769 Review of Systems Const All systems reviewed & are unremarkable except as noted in HPI and below Eyes Reports no additional complaints, Denies change in vision and Denies other visual disturbances Card Denies chest pain at rest, Denies chest pain with activity, Denies edema, Denies irregular heart rhythm, Denies claudication, Denies dyspnea, Denies dyspnea on exertion, Denies orthopnea, Denies paroxysmal nocturnal dyspnea and Denies slow heart rate Resp Denies cough, Denies dyspnea and Denies dyspnea on exertion Physical exam (Primary Care) Vital Signs: Last Vital Signs BP 140/92 H 10/18/23 13:25 BMI result Body Mass Index 30.1 BMI Assessment/Plan discussion: High BMI High, discussed plan: lifestyle, weight reduction, dietary and physical activity Tobacco/Smoking Status: Tobacco use Status Tobacco use date assessed 10/18/23 10/18/23 13:33 Patient Tobacco Use Status Never used Tobacco 10/18/23 13:33 e-Cigarette/Vaping Use Never Used 10/18/23 13:33 PHQ-9: PHQ-9 Score PHQ-9: Total score 6 10/18/23 13:39 Depression Screening Interpretation: Positive Depression Screening Follow-up: Existing condition, Community Mental Health Worker F/U and Follow-up Visit Requested Thrive Assessment: Date of Thrive Assessment Date Thrive assessed 10/18/23 10/18/23 13:33 Currently or been in a relationship where the following occur: no concerns reported Resp Effort & Inspection: normal respiratory effort Auscultation: clear to auscultation bilaterally Cardio Jugular venous distension: no JVD Rate: regular rate Rhythm: regular rhythm Heart sounds: S1 normal heart sound present and S2 normal heart sound present Extrem General: Yes full ROM Assessment and Plan Assessment & Plan (1) Mild recurrent major depression: Code(s): F33.0 - Major depressive disorder, recurrent, mild Plan: Continue SSRIs. Follow-up with psychiatry. (2) GERD (gastroesophageal reflux disease): Code(s): K21.9 - Gastro-esophageal reflux disease without esophagitis Qualifiers: Esophagitis presence: esophagitis presence not specified Qualified Code(s): K21.9 - Gastro-esophageal reflux disease without esophagitis Plan: Continue PPIs. (3) Essential hypertension: Code(s): I10 - Essential (primary) hypertension Plan: Increase losartan. Blood pressure goal is equal or less than 130/80. Recheck blood pressure with nurse navigator in 3 weeks. (4) Pure hypercholesterolemia: Code(s): E78.00 - Pure hypercholesterolemia, unspecified Plan: Repeat lipid panel. (5) Internal derangement of left knee: Code(s): M23.92 - Unspecified internal derangement of left knee Plan: Change meloxicam to nabumetone. Follow-up with ortho. Orders: Orders Comprehensive [place]. Panel Fast Today I10 - Essential (primary) hypertension Lipid Panel Today E78.5 - Hyperlipidemia, unspecified, I10 - Essential (primary) hypertension Medications: New losartan 50 mg PO DAILY 90 tabs 1RF 90 days I10 - Essential (primary) hypertension omeprazole 20 mg PO DAILY 90 caps 1RF 90 days nabumetone 750 mg PO BID PRN 60 tabs 1RF pain 30 days Discontinued losartan Discontinued Reason: Patient Completed Course 25 mg PO DAILY 90 days 90 tabs 2RF meloxicam Discontinued Reason: Patient Completed Course 15 mg PO DAILY 90 days PRN 90 tabs 1RF pain Coding Level of Care Code Est Pt Level 4 (75724) Complex EM visit Add On G2211 Diagnoses Mild recurrent major depression F33.0 Gastroesophageal reflux disease, unspecified whether esophagitis present K21.9 Esophagitis presence: esophagitis presence not specified Essential hypertension I10 Pure hypercholesterolemia E78.00 Internal derangement of left knee M23.92 Additional Codes GREGORIO-7 Assessment Billing - GREGORIO-7 Assessment Tool: GREGORIO-7 Assessment [id number] ([id number]) Time Spent (min) 23
[2023-10-18 13:25] VITALS: BP 140/92; BMI 30.1
[2023-10-18 16:16] VITALS: BP 140/90
== END 2023-10-18 13:47 | disposition home or self-care (01) ==
PROVIDERS: PCP Internal Medicine; Visit Provider Internal Medicine
DX: K21.9 Gastro-esophageal reflux disease without esophagitis (principal); F33.0 Major depressive disorder, recurrent, mild; I10 Essential (primary) hypertension; E78.00 Pure hypercholesterolemia, unspecified; M23.92 Unspecified internal derangement of left knee
CPT/HCPCS: 99214; G2211

== ENCOUNTER 2023-11-03 10:24 | Outpatient (REF) | payer OTHER, SELFPAY ==
[2023-11-03 12:24] LABS: Alanine Aminotransferase 14 U/L (0-40); Albumin Level 4.2 g/dL (3.5-5.0); Alkaline Phosphatase 49 U/L (39-117); Anion Gap 12 (12-20); Aspartate Amino Transferase 20 U/L (5-37); Bilirubin Total 0.4 mg/dL (0.0-1.0); Blood Urea Nitrogen 16 mg/dL (9-16); Calcium 9.1 mg/dL (8.4-10.2); Carbon Dioxide 24 mmol/L (22-29); Chloride 109 mmol/L (96-108); Cholesterol 206 mg/dL (<200); Estimated Glomerular Filt Rate > 60; Glucose Fasting 104 mg/dL (60-99); HDL Cholesterol 47 mg/dL (>40); LDL Cholesterol Calculated 148 mg/dL (<100); Potassium 4.1 mmol/L (3.3-5.1); Sodium 141 mmol/L (135-145); Total Protein 7.3 g/dL (6.5-8.0); Triglycerides 58 mg/dL (<150)
== END 2023-11-03 10:25 | disposition home or self-care (01) ==
LOC: HO.LAB 10:24
PROVIDERS: PCP Internal Medicine; Visit Provider Internal Medicine
DX: I10 Essential (primary) hypertension (principal); E78.5 Hyperlipidemia, unspecified
CPT/HCPCS: 36415; 80053; 80061

== ENCOUNTER 2025-05-06 07:59 | Outpatient (REF) | payer OTHER, SELFPAY ==
[2025-05-06 09:59] LABS: Hematocrit 39.3 % (42.0-52.0); Hemoglobin 13.2 g/dl (14.0-18.0); Mean Corpuscular HGB Conc 33.6 g/dl (31.0-36.0); Mean Corpuscular Hemoglobin 29.1 pg (27.0-33.0); Mean Corpuscular Volume 86.6 fL (80.0-98.0); NRBC Abs Auto 0.000 X10*3/uL (0.0-0.012); NRBC Pct Auto 0.0 /100WBC (0.0-0.2); Platelet Count 214 X10*3/uL (160-400); Red Blood Count 4.54 X10*6/uL (4.60-5.80); White Blood Count 6.4 X10*3/uL (4.8-10.8)
[2025-05-06 10:05] LABS: Hemoglobin A1C 173.2829 umol/L
[2025-05-06 10:42] LABS: Anion Gap 10 (12-20); Blood Urea Nitrogen 17 mg/dL (9-16); Calcium 9.3 mg/dL (8.4-10.2); Carbon Dioxide 27 mmol/L (22-29); Chloride 108 mmol/L (96-108); Cholesterol 223 mg/dL (<200); Estimated Glomerular Filt Rate > 60; HDL Cholesterol 43 mg/dL (>40); Potassium 4.1 mmol/L (3.3-5.1); Sodium 141 mmol/L (135-145); Triglycerides 97 mg/dL (<150)
[2025-05-06 10:50] LABS: Prostate Specific Antigen 0.27 ng/mL (<0.05-4.0)
[2025-05-06 10:58] LABS: HIV Num 1 0.06 S/CO (0.00-0.99); ~HepC Num1 3.76 S/CO (0.00-0.79); ~Hepatitis C Antibody Reactive (Nonreactive)
[2025-05-08 15:58] LABS: HCV Log PCR <1.18 NOT DETECTED Log IU/mL (NOT DETECTED); HepC Viral Load <15 NOT DETECTED IU/mL (NOT DETECTED)
== END 2025-05-06 08:00 | disposition home or self-care (01) ==
LOC: HO.LAB 07:59
PROVIDERS: PCP Internal Medicine; Visit Provider Internal Medicine
DX: Z00.00 Encounter for general adult medical examination without abnormal findings (principal); I10 Essential (primary) hypertension; F33.0 Major depressive disorder, recurrent, mild; K21.9 Gastro-esophageal reflux disease without esophagitis; M21.161 Varus deformity, not elsewhere classified, right knee; S83.232A Complex tear of medial meniscus, current injury, left knee, initial encounter; X58.XXXA Exposure to other specified factors, initial encounter; Y93.9 Activity, unspecified; Y92.9 Unspecified place or not applicable; Y99.9 Unspecified external cause status; Z98.1 Arthrodesis status
CPT/HCPCS: 36415; 80048; 80061; 83036; 84153; 84443; 85027; 86803; 87389; 87522; 99396

== ENCOUNTER 2025-05-06 07:59 | Outpatient (AMB) | payer OTHER, SELFPAY ==
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
[2025-05-06 08:10] VITALS: BP 152/78; PULSE 85; O2SAT 98; BMI 34.2
== END 2025-05-06 09:01 | disposition home or self-care (01) ==
LOC: HO.HMCH 08:00
PROVIDERS: PCP Internal Medicine; Visit Provider Internal Medicine
DX: Z00.00 Encounter for general adult medical examination without abnormal findings (principal); F33.0 Major depressive disorder, recurrent, mild; I10 Essential (primary) hypertension; K21.9 Gastro-esophageal reflux disease without esophagitis; S83.232A Complex tear of medial meniscus, current injury, left knee, initial encounter; M21.161 Varus deformity, not elsewhere classified, right knee